=== PATIENT | female | born 1995 | race Caucasian/White ===

== ENCOUNTER 2017-02-11 23:09 | Inpatient (IN) | payer OTHER ==
[~2017-02-11] VITALS: Ht 165.1 cm; Wt 97.7 kg
--- NOTE | 2017-02-11 23:45 | ERA ---
ER Documentation Chief Complaint Date/Time DATE: 02/11/17 TIME: 23:44 Chief Complaint Abdominal pain HPI The patient is a 21-year-old female, presenting to the ER because of right upper quadrant abdominal pain intermittently for 1 day, 05/23, no aggravating or relieving factor. She was seen at [facility] ER and had an ultrasound that show cholelithiasis, no evidence of cholecystitis. She was treated with IV fluids, pain medication, Zosyn due to slightly elevated white blood. She was offered admission, however signed AMA to go to [facility]. She previously saw her general surgeon Dr. Pinedo, and was waiting for approval for surgery. She denies fever, chills, neck pain, chest pain, nausea, vomiting , dysuria, diarrhea. She does not smoke or drink Past medical history: Cholecystectomy, asthma Past surgical history: Gastric bypass ROS All systems reviewed and are negative except as per history of present illness. Allergies Allergies: Coded Allergies: codeine (Verified Allergy, Intermediate, rash, 02/12/17) Physical Exam Vitals Vital Signs Date Time Temp Pulse Resp B/P Pulse Ox O2 Delivery O2 Flow Rate FiO2 02/12/17 00:20 46 16 114/64 100 Room Air 02/11/17 23:17 97.7 84 18 126/85 100 Physical Exam Const: No acute distress. Head: Atraumatic. Eyes: Normal Conjunctiva. ENT: Normal External Ears, Nose and Mouth. Neck: Full range of motion. No meningismus. Resp: Clear to auscultation bilaterally. Cardio: Regular rate and rhythm. Abd: Soft, non distended, normal bowel sounds, moderate right upper quadrant tenderness, no right lower quadrant, rigidity, rebound or CVA tenderness Skin: No petechiae or rashes. Back: No midline or flank tenderness. Ext: No cyanosis, or edema. Neur: Awake and alert. No focal deficit Psych: Normal Mood and Affect. Results 24 hrs Laboratory Tests Test 02/12/17 00:19 Bedside Urine pH (LAB) 6.5 Bedside Urine Protein (LAB) Trace Bedside Urine Glucose (UA) Negative Bedside Urine Ketones (LAB) 1+ Bedside Urine Blood Negative Bedside Urine Nitrite (LAB) Negative Bedside Urine Leukocyte Esterase (L Negative Current Medications Medications (Trade) Dose Ordered Sig/Lidya Route PRN Reason Start Time Stop Time Status Last Admin Dose Admin Sodium Chloride (NS) 1,000 ml @ 1,000 mls/hr Q1H STAT IV 02/12/17 00:01 02/12/17 01:00 02/12/17 00:28 Morphine Sulfate (morphine) 4 mg ONCE STAT IV 02/12/17 00:01 02/12/17 00:10 DC 02/12/17 00:28 Ondansetron HCl (Zofran Inj) 4 mg ONCE STAT IV 02/12/17 00:01 02/12/17 00:10 DC 02/12/17 00:28 Ketorolac Tromethamine (Toradol) 30 mg ONCE STAT IV 02/12/17 00:01 02/12/17 00:10 DC 02/12/17 00:28 Procedures/MDM MEDICAL MAKING DECISION: Ultrasound and blood tests from [facility] were reviewed by me. The patient is 21-year-old female, presenting with acute symptomatic biliary colic. She was treated with 1 L normal saline for clinical dehydration, morphine 4 mg IV and Toradol 30 mg IV for pain and Zofran for liquid IV for nausea with good response, Zosyn IV for symptomatic biliary colic , concerning for acute cystitis The differential diagnoses considered include but are not limited to cholelithiasis, cholecystitis, cystitis, pancreatitis, hepatitis, gastritis, peptic ulcer disease, gastric ulcer, appendicitis, diverticulitis, cholangitis, choledocholithiasis, partial small bowel obstruction. Consultation: I discussed the patient with her general surgeon Dr. Pinedo at 12 0 5 AM, who recommended admitting the patient for surgical intervention Departure Diagnosis: Primary Impression: Biliary colic Condition: Good Comments I discussed the findings with the patient. I discussed the patient with the on- call hospitalist Dr. Art who was made aware of the lab, the treatment, the patient condition and my discussion with her general surgeon, pending labs. The patient is admitted to medical surgery bed at 12:30 AM The patient's blood pressure was elevated (>120/80) but appears stable without evidence of hypertension emergency or urgency. The patient was counseled about the risks of hypertension and urged to pursue outpatient monitoring and therapy within a week with their primary care physician. DARELL REDDY MD Feb 11, 2017 23:45
[2017-02-12] MEDS ORDERED: SOD CHLORIDE 0.9% 1,000 ML IV STA (00:01)
[2017-02-12] MEDS ORDERED: ONDANSETRON 4 MG INJ IV STA (00:01)
[2017-02-12] MEDS ORDERED: KETOROLAC 30 MG INJ IV STA (00:01)
[2017-02-12] MEDS ORDERED: morphine 4 MG/ML VIAL IV STA (00:01)
[2017-02-12 00:16] LABS: URINE BLOOD (Dip) POC Negative (NEGATIVE)
[2017-02-12 00:58] LABS: BASOPHILS % 0.2 % (0.0-2.0); EOSINOPHILS # 0.1 10^3/ul (0.0-0.5); HEMATOCRIT 37.5 % (37.0-47.0); HEMOGLOBIN 12.1 g/dl (12.0-16.0); LYMPHOCYTES # 2.1 10^3/ul (0.8-2.9); LYMPHOCYTES % 22.6 % (18.0-55.0); MEAN CORPUSCULAR HEMOGLOBIN 28.8 pg (29.0-33.0); MEAN CORPUSCULAR HGB CONC 32.3 g/dl (32.0-37.0); MEAN CORPUSCULAR VOLUME 89.3 fl (72.0-104.0); MEAN PLATELET VOLUME 10.7 fl (7.4-10.4); MONOCYTE # 0.5 10^3/ul (0.3-0.9); MONOCYTES % 5.2 % (0.0-13.0); NEUTROPHIL # 6.5 10^3/ul (1.6-7.5); NEUTROPHILS % 70.7 % (30.0-74.0); PLATELET COUNT 343 10^3/UL (140-415); RED CELL DISTRIBUTION WIDTH 12.7 % (11.5-14.5); WHITE BLOOD COUNT 9.2 10^3/ul (4.8-10.8)
[2017-02-12] MEDS: PIPER-TAZO 3.375 GM IV (PMX) 100 ML IVPB SCH ×5 (01:00→23:29)
[2017-02-12] MEDS ORDERED: NACL 0.9% 3 ML SYG IV SCH (01:00)
[2017-02-12 01:13] LABS: INR 0.9; PARTIAL THROMBOPLASTIN TIME 30.3 Sec (25.0-35.0); PROTIME 12.1 Sec (12.2-14.2); PT RATIO 0.9
--- NOTE | 2017-02-12 01:13 | HP ---
Date/Time of Note Date/Time of Note DATE: 02/12/17 TIME: 01:08 Assessment/Plan VTE Prophylaxis VTE Prophylaxis Intervention: SCD's Assessment/Plan Chief Complaint/Hosp Course This is a 21-year-old female being admitted to the [facility] floor #1 symptomatic cholelithiasis: Patient has a history of gallstones and was scheduled to have an appointment with Dr. Pinedo. However as patient's is currently symptomatic she will be admitted. She will be kept n.p.o. IV antibiotics for surgical prophylaxis, IV pain control. And consult was already placed by the ED physician to Dr. Pinedo for possible cholecystectomy. #2 leukocytosis: Based on blood work from the transferring facility white blood cell count was 13. At the current time there are no fevers and ultrasound was negative for cholecystitis. We will continue to monitor this and monitor for any fevers. This likely could be reactive or or a sign of possible early cholecystitis. #3 abnormal EKG: Patient does not complain of any chest pain or shortness of breath. EKG from the transferring facility showed sinus bradycardia at approximately 40-45 bpm. Will repeat an EKG in the a.m. if this is consistent we may need to discuss with cardiology before proceeding with surgery. #4 DVT and GI prophylaxis: SCDs, Protonix futher treatment strategy as per the clinical course Problems: HPI/ROS Admit Date/Time Admit Date/Time Hx of Present Illness Chief complaint: Right upper quadrant abdominal pain The patient is a 21-year-old female, presenting to the ER because of right upper quadrant abdominal pain intermittently for 1 day, 05/23, no aggravating or relieving factor. She was seen at [facility] ER and had an ultrasound that show cholelithiasis, no evidence of cholecystitis. She was treated with IV fluids, pain medication, Zosyn due to slightly elevated white blood. She was offered admission, however signed AMA to go to [facility]. She previously saw her general surgeon Dr. Pinedo, and was waiting for approval for surgery. She does report nausea and vomiting but denies fevers. allerigies: codeine meds: see cherelle SOUSA Const: As per HPI Eyes : No pain discharge or redness or change in visual acuity ENT: No pain, sore throat, congestion, congestion, dysphagia or discharge Respiratory: No shortness of breath, cough, sputum, wheezing, or pleuritic pain Cardiovascular: No chest pain, palpitation, PND, or edema GI : As per HPI Genitourinary: No dysuria, hematuria, flank pain , discharge or CVA tenderness Musculoskeletal: No joint pain, back pain, neck pain, restricted range of motion in neck or joints Skin: No rash, bruising or hives Neuro: No headache, dizziness, syncope, seizure, focal weakness Endocrine: No polyuria, polydipsia, temperature intolerance Psych: No hallucination, depression, anxiety or suicidal ideation PMH/Family/Social Past Medical History Gallstones Past Surgical History Past Surgical Hx: no surgical history Family History Significant Family History: diabetes Social History Alcohol Use: none Smoking Status: Never smoker Drug Use: none Exam/Review of Systems Vital Signs Vitals Vital Signs Date Time Temp Pulse Resp B/P Pulse Ox O2 Delivery O2 Flow Rate FiO2 02/12/17 00:20 46 16 114/64 100 Room Air 02/11/17 23:17 97.7 Exam Exam General: Patient is well-developed well-nourished The patient is alert oriented -3 lying comfortably in bed. HEENT: Atraumatic, normocephalic. The pupils are equal, round and reactive. Extraocular motor are intact Neck: Supple with full range of motion. No rigidity or meningismus Chest: Nontender Lungs: Clear to auscultation bilaterally no crackles rales or wheezing Heart: Normal S1-S2, Regular rhythm and rate. No murmur, S3, or S4 Abdomen: Soft, tenderness to palpation of the right upper quadrant, normal bowel sounds Extremities: Normal to inspection, no edema no cyanosis Neurologic: Normal mental status, speech normal, cranial nerves II through XII are intact, motor and sensory are intact, no focal weakness Additional Comments CBC: White blood cell count 13.9 hemoglobin 12 hematocrit 38 platelets 351. BMP: All within normal values Liver function tests: AST 20 ALT 21 alk phos 81 bilirubin 0.6 PT: 12.3 INR 1.0 PTT 31 Ultrasound of the gallbladder: Cholelithiasis, no signs of cholecystitis. EKG: Showed sinus bradycardia at approximately 45 bpm. Medications Medications Current Medications Sodium Chloride (NS) 1,000 ml @ 100 mls/hr Q10H IV ; Start 02/12/17 at 00:38 Ondansetron HCl (Zofran Inj) 4 mg Q6H PRN IV NAUSEA AND/OR VOMITING; Start 02/12 at 01:00 Hydromorphone HCl (Dilaudid) 0.5 mg Q4H PRN IV SEVERE PAIN LEVEL 7-10; Start at 01:00 Pantoprazole 40 mg 40 mg DAILY@06 IV ; Start 02/12/17 at 06:00 Piperacillin Sod/ Tazobactam Sod (Zosyn 3.375gm/ 100 ml (Pmx)) 100 ml @ 200 mls /hr Q6 IVPB Last administered on 02/12/17 01:00; Admin Dose 200 MLS/HR; Start 02/12/17 at 01:00 ARTURO DUTTON Feb 12, 2017 01:13
[2017-02-12 01:18] LABS: ALBUMIN 4.5 g/dl (3.3-4.9); ALBUMIN/GLOBULIN RATIO 1.45; BILIRUBIN,INDIRECT 0.4 mg/dl (0-1.1); BILIRUBIN,TOTAL 0.4 mg/dl (0.2-1.3); CALCIUM 9.3 mg/dl (8.4-10.2); CREATININE 0.71 mg/dl (0.44-1.00); POTASSIUM 4.2 mmol/L (3.5-5.1); TOTAL PROTEIN 7.6 g/dl (6.1-8.1)
--- NOTE | 2017-02-12 01:31 | RADRPT ---
PROCEDURE: XR Chest. CLINICAL INDICATION: Preoperative chest radiograph TECHNIQUE: Single frontal view of the chest. COMPARISON: None. FINDINGS: The cardiomediastinal silhouette is within normal limits. The lungs are clear. No signs of pleural f luid or pneumothorax are seen. The osseous structures and soft tissues are unremarkable. IMPRESSION: No evidence for active cardiopulmonary disease. RPTAT: [facility] Physician Charlie Date Time Electronically viewed and signed by Physician Charlie on 02/12/2017 01:31 RS/
[2017-02-12 02:50] VITALS: BP 120/59; PULSE 49; RESP 16; Ht 165.1 cm; Wt 97.7 kg
[2017-02-12] MEDS: SOD CHLORIDE 0.9% 1,000 ML IV SCH ×3 (03:14→14:07)
[2017-02-12] MEDS ORDERED: MONT10TA21 PO (04:09)
[2017-02-12] MEDS ORDERED: LORA5TAB4 PO (04:09)
[2017-02-12] MEDS: PANTOPRAZOLE 40 MG INJ IV SCH (05:42)
[2017-02-12 08:10] VITALS: BP 100/54; RESP 16
--- NOTE | 2017-02-12 13:26 | PN ---
Date/Time of Note Date/Time of Note DATE: 02/12/17 TIME: 13:26 Assessment/Plan VTE Prophylaxis VTE Prophylaxis Intervention: SCD's Lines/Catheters IV Catheter Type (from Nrsg): Peripheral IV Assessment/Plan Assessment/Plan 21 yo F with symptomatic cholecystitis plan or today for lap juan pablo dispo as per gen surg Subjective 24 Hr Interval Summary Free Text/Dictation Pain control adequate. Exam/Review of Systems Vital Signs Vitals Vital Signs Date Time Temp Pulse Resp B/P Pulse Ox O2 Delivery O2 Flow Rate FiO2 02/12/17 02:50 98.1 49 16 120/59 98 Room Air Intake and Output 02/11/17 02/11/17 02/12/17 15:00 23:00 07:00 Intake Total 300 ml Balance 300 ml Exam nad, sitting up in bed no mrg lungs clear abd soft no le edema Results Result Diagram: 02/12/17 0010 02/12/17 0010 Results 24 hrs Laboratory Tests Test 02/12/17 00:10 02/12/17 00:19 White Blood Count 9.2 Red Blood Count 4.20 Hemoglobin 12.1 Hematocrit 37.5 Mean Corpuscular Volume 89.3 Mean Corpuscular Hemoglobin 28.8 L Mean Corpuscular Hemoglobin Concent 32.3 Red Cell Distribution Width 12.7 Platelet Count 343 Mean Platelet Volume 10.7 H Neutrophils % 70.7 Lymphocytes % 22.6 Monocytes % 5.2 Eosinophils % 1.0 Basophils % 0.2 Nucleated Red Blood Cells % 0.0 Neutrophils # 6.5 Lymphocytes # 2.1 Monocytes # 0.5 Eosinophils # 0.1 Basophils # 0.0 Nucleated Red Blood Cells # 0.0 Prothrombin Time 12.1 L Prothrombin Time Ratio 0.9 INR International Normalized Ratio 0.90 Activated Partial Thromboplast Time 30.3 Sodium Level 142 Potassium Level 4.2 Chloride Level 103 Carbon Dioxide Level 25 Anion Gap 18 H Blood Urea Nitrogen 7 Creatinine 0.71 Glucose Level 83 Calcium Level 9.3 Total Bilirubin 0.4 Direct Bilirubin 0.00 Indirect Bilirubin 0.4 Aspartate Amino Transf (AST/SGOT) 25 Alanine Aminotransferase (ALT/SGPT) 36 Alkaline Phosphatase 87 Total Protein 7.6 Albumin 4.5 Globulin 3.10 Albumin/Globulin Ratio 1.45 Lipase 36 Bedside Urine pH (LAB) 6.5 Bedside Urine Protein (LAB) Trace H Bedside Urine Glucose (UA) Negative Bedside Urine Ketones (LAB) 1+ H Bedside Urine Blood Negative Bedside Urine Nitrite (LAB) Negative Bedside Urine Leukocyte Esterase (L Negative Medications Medications Current Medications Sodium Chloride (NS) 1,000 ml @ 100 mls/hr Q10H IV Last administered on 03:14; Admin Dose 100 MLS/HR; Start 02/12/17 at 00:38 Ondansetron HCl (Zofran Inj) 4 mg Q6H PRN IV NAUSEA AND/OR VOMITING; Start 02/12 at 01:00 Hydromorphone HCl (Dilaudid) 0.5 mg Q4H PRN IV SEVERE PAIN LEVEL 7-10; Start at 01:00 Pantoprazole 40 mg 40 mg DAILY@06 IV Last administered on 02/12/17 05:42; Admin Dose 40 MG; Start 02/12/17 at 06:00 Piperacillin Sod/ Tazobactam Sod (Zosyn 3.375gm/ 100 ml (Pmx)) 100 ml @ 200 mls /hr Q6 IVPB Last administered on 02/12/17 12:17; Admin Dose 200 MLS/HR; Start 02/12/17 at 01:00 HUBER GOODWIN MD Feb 12, 2017 13:26
[2017-02-12 20:13] VITALS: BP 100/59; RESP 19
[2017-02-13] VITALS (23 sets, daily range): BP systolic 102–125; BP diastolic 50–69; PULSE 50–84; RESP 16–21
[2017-02-13] MEDS: SOD CHLORIDE 0.9% 1,000 ML IV SCH ×3 (01:27→18:05)
[2017-02-13] MEDS: PIPER-TAZO 3.375 GM IV (PMX) 100 ML IVPB SCH ×3 (05:39→18:00)
[2017-02-13] MEDS: PANTOPRAZOLE 40 MG INJ IV SCH (05:39)
--- NOTE | 2017-02-13 10:24 | PN ---
Date/Time of Note Date/Time of Note DATE: 02/13/17 TIME: 10:23 Assessment/Plan VTE Prophylaxis VTE Prophylaxis Intervention: SCD's Lines/Catheters IV Catheter Type (from Nrsg): Peripheral IV Assessment/Plan Assessment/Plan 21 yo F with symptomatic cholecystitis plan or today for lap juan pablo??? dispo as per gen surg Subjective 24 Hr Interval Summary Free Text/Dictation Still waiting on cholecystectomy Exam/Review of Systems Vital Signs Vitals Vital Signs Date Time Temp Pulse Resp B/P Pulse Ox O2 Delivery O2 Flow Rate FiO2 02/13/17 08:26 98.0 18 113/69 97 02/12/17 20:13 55 02/12/17 02:50 Room Air Intake and Output 02/12/17 02/12/17 02/13/17 15:00 23:00 07:00 Intake Total 800 ml 400 ml 1720 ml Balance 800 ml 400 ml 1720 ml Exam nad, laying on side respirations nonlabored no gross abd distension no rashes no le edema Results Result Diagram: 02/12/17 0010 02/12/17 0010 Medications Medications Current Medications Sodium Chloride (NS) 1,000 ml @ 100 mls/hr Q10H IV Last administered on 01:27; Admin Dose 100 MLS/HR; Start 02/12/17 at 00:38 Ondansetron HCl (Zofran Inj) 4 mg Q6H PRN IV NAUSEA AND/OR VOMITING; Start 02/12 at 01:00 Hydromorphone HCl (Dilaudid) 0.5 mg Q4H PRN IV SEVERE PAIN LEVEL 7-10; Start at 01:00 Pantoprazole 40 mg 40 mg DAILY@06 IV Last administered on 02/13/17 05:39; Admin Dose 40 MG; Start 02/12/17 at 06:00 Piperacillin Sod/ Tazobactam Sod (Zosyn 3.375gm/ 100 ml (Pmx)) 100 ml @ 200 mls /hr Q6 IVPB Last administered on 02/13/17 05:39; Admin Dose 200 MLS/HR; Start 02/12/17 at 01:00 HUBER GOODWIN MD Feb 13, 2017 10:23
[2017-02-13] MEDS ORDERED: BUPIVACAINE 0.25% (MPF) 30 ML INJ ONE (16:48)
[2017-02-13] MEDS ORDERED: MIDAZOLAM 1 MG/ML 2 ML INJ ONE (17:18)
[2017-02-13] MEDS ORDERED: MEPERIDINE 25 MG INJ IV PRN (18:00)
[2017-02-13] MEDS ORDERED: DIPHENHYDRAMINE 50 MG INJ IV PRN (18:00)
[2017-02-13] MEDS ORDERED: METOCLOPRAMIDE 10 MG INJ IV PRN (18:00)
[2017-02-13] MEDS ORDERED: ONDANSETRON 4 MG INJ IV PRN (18:00)
[2017-02-13] MEDS ORDERED: ONDANSETRON 4 MG INJ ONE (18:02)
[2017-02-13] MEDS ORDERED: ROCURONIUM 50 MG INJ ONE (18:06)
[2017-02-13] MEDS ORDERED: NEOSTIGMINE 3 MG/3 ML SYRINGE ONE (18:06)
[2017-02-13] MEDS ORDERED: LIDOCAINE 2% (SDV) 5 ML INJ ONE (18:06)
[2017-02-13] MEDS ORDERED: GLYCOPYRROLATE 0.4 MG INJ ONE (18:06)
[2017-02-13] MEDS ORDERED: CEFAZOLIN 1 GM INJ ONE (18:06)
[2017-02-13] MEDS ORDERED: PROPOFOL 20 ML ONE (18:06)
--- NOTE | 2017-02-13 18:11 | OPR ---
Date/Time of Note Date/Time of Note DATE: 02/13/17 TIME: 18:07 Operative Report Procedure Date: Feb 13, 2017 Preoperative Diagnosis symptomatic gallstones Postoperative Diagnosis same Operation Performed lap juan pablo therapeutic injection of subcutaneous marcaine cpt code 51043 Surgeon: Kae CRARANZA Specimens gallbladder Procedure Description Patient is taken to the OR and prepped and draped in usual sterile fashion. Surgical time was performed IV antibiotics are given. Infraumbilical incision is made with a 15 blade. Dissection cautery was carried down to the fascia. Fascia is divided and 0 Vicryl U stitch was placed into the fascia put. Balloon Rubio trocar was introduced and pneumoperitoneum is established. Midepigastric 12 mm optical trocar was placed under direct visualization. Right upper quadrant right upper flank 5 mm optical trocar was placed under direct visualization. Upon initial inspection there are some adhesions to the gallbladder which were taken down bluntly. The cystic duct is identified a critical view was established the cystic duct was divided using a 35 mm echelon vascular stapler. Additional clips were placed for reinforcement. 3 clips proximally clipped distally was placed on the cystic artery. The gallbladder was taken of the gallbladder bed there is good hemostasis gallbladder is achieved using an Endo Catch bag. Ports removed under direct visualization 0 Vicryl U stitch was tied down. Skin is closed and skin alvaro. Local anesthesia is injected into all surgical sites. Dry dressings were placed. Kae CARRANZA Feb 13, 2017 18:10
[2017-02-13] MEDS ORDERED: HYDROCODONE/APAP (5/325) TAB PO PRN (18:30)
[2017-02-13] MEDS: FENTAnyl 50 MCG/ML VIAL IV PRN ×3 (18:43→19:06)
[2017-02-13] MEDS ORDERED: HYDROmorphONE 1 MG/ML SYG IV STA (19:25)
[2017-02-13] MEDS: HYDROmorphONE 1 MG/ML SYG IV PRN (20:32)
[2017-02-13] MEDS: ONDANSETRON 4 MG INJ IV PRN (20:47)
--- NOTE | 2017-02-13 20:58 | RADRPT ---
Vent Rate: 52 bpm RR Interval: 0 msec [place] Interval: 174 msec QRS Duration: 92 msec QT Interval: 450 msec QTC Interval: 418 msec P-R-T [place]: 58 - 54 - 41 degrees Sinus bradycardia with marked sinus arrhythmia Otherwise normal ECG Electronically Signed By: Carlos Mckeon [id number]
[2017-02-14] MEDS: PIPER-TAZO 3.375 GM IV (PMX) 100 ML IVPB SCH ×4 (00:06→17:42)
[2017-02-14] MEDS: HYDROmorphONE 1 MG/ML SYG IV PRN ×6 (00:40→21:01)
[2017-02-14] MEDS: SOD CHLORIDE 0.9% 1,000 ML IV SCH ×5 (04:05→12:34)
[2017-02-14] MEDS: ONDANSETRON 4 MG INJ IV PRN (04:54)
[2017-02-14 04:58] LABS: ADD SCAN DIFF NO
[2017-02-14 05:00] LABS: BASOPHILS % 0.1 % (0.0-2.0); EOSINOPHILS % 0.1 % (0.0-7.0); HEMATOCRIT 33.8 % (37.0-47.0); HEMOGLOBIN 11.2 g/dl (12.0-16.0); LYMPHOCYTES % 7.8 % (18.0-55.0); MEAN CORPUSCULAR HEMOGLOBIN 28.4 pg (29.0-33.0); MEAN CORPUSCULAR HGB CONC 33.1 g/dl (32.0-37.0); MEAN CORPUSCULAR VOLUME 85.8 fl (72.0-104.0); MEAN PLATELET VOLUME 10.9 fl (7.4-10.4); MONOCYTE # 0.4 10^3/ul (0.3-0.9); MONOCYTES % 3.1 % (0.0-13.0); NEUTROPHILS % 88.6 % (30.0-74.0); PLATELET COUNT 266 10^3/UL (140-415); RED BLOOD COUNT 3.94 10^6/ul (4.20-5.40); WHITE BLOOD COUNT 12.4 10^3/ul (4.8-10.8)
[2017-02-14 05:27] LABS: ALBUMIN 3.7 g/dl (3.3-4.9); ALBUMIN/GLOBULIN RATIO 1.54; BILIRUBIN,INDIRECT 0.3 mg/dl (0-1.1); BILIRUBIN,TOTAL 0.3 mg/dl (0.2-1.3); CALCIUM 8.9 mg/dl (8.4-10.2); CREATININE 0.64 mg/dl (0.44-1.00); POTASSIUM 4.2 mmol/L (3.5-5.1); TOTAL PROTEIN 6.1 g/dl (6.1-8.1)
[2017-02-14] MEDS: PANTOPRAZOLE 40 MG INJ IV SCH (05:42)
[2017-02-14 07:52] VITALS: BP 114/67; RESP 20
--- NOTE | 2017-02-14 09:06 | PN ---
Date/Time of Note Date/Time of Note DATE: 02/14/17 TIME: 09:02 Assessment/Plan VTE Prophylaxis VTE Prophylaxis Intervention: SCD's Lines/Catheters IV Catheter Type (from Nrs): Peripheral IV Assessment/Plan Chief Complaint/Hosp Course 1. Symptomatic cholelithiasis. Status post laparoscopic cholecystectomy on 02/13. Continue pain control. Continue incentive spirometry. Encourage frequent ambulation. Diet as per surgery. 2. Hyponatremia. Etiology unclear. Continue IV normal saline. 3. Sinus bradycardia. The patient is asymptomatic. 4. Obesity. BMI of 35.8 kg/m. Weight reduction will be advised. Will obtain a fasting lipid panel and hemoglobin A1C. 5. Fluids, electrolytes, and nutrition. Continue IV normal saline. Diet as tolerated. 6. DVT prophylaxis. Bilateral sequential compression devices. 7. Gastrointestinal prophylaxis. Proton pump inhibitors. 8. Plan. Continue IV normal saline. Encourage frequent ambulation. Encourage frequent use of incentive spirometry. Continue pain control. Case discussed with Dr. Logan. Problems: Subjective 24 Hr Interval Summary Free Text/Dictation Complains of abdominal pain. Exam/Review of Systems Vital Signs Vitals Vital Signs Date Time Temp Pulse Resp B/P Pulse Ox O2 Delivery O2 Flow Rate FiO2 02/14/17 07:52 98.4 57 20 114/67 100 02/13/17 19:38 Room Air 02/13/17 18:28 8.0 Intake and Output 02/13/17 02/13/17 02/14/17 15:00 23:00 07:00 Intake Total 700 ml 900 ml 1280 ml Output Total 15 ml Balance 700 ml 885 ml 1280 ml Exam General: Obese 21 year-old female lying in bed in no apparent distress. HEENT: Normocephalic, atraumatic. Eyes: Anicteric sclerae, conjunctivae clear. ENT: Nasal septum midline, oral mucosa moist. Neck supple, no JVD noticed. Respiratory: Bilaterally clear breath sounds. No use of accessory muscles of respiration. No adventitious breath sounds. Cardiovascular: S1, S2 heard. No murmurs or gallops. Bradycardia. Abdomen: Soft and nondistended. Bowel sounds hypoactive in all 4 quadrants. Tapes over laparoscopic incision sites with nico-incisional tenderness. Genitourinary: Deferred. Extremities: No cyanosis, no clubbing, no edema. Peripheral pulses palpable. Neurologic: Cranial nerves II through XII grossly intact. The patient is awake, alert, and oriented. Skin: Normal skin turgor. No skin rashes. Results Result Diagram: 02/14/1743402/14/17 043 Results 24 hrs Laboratory Tests Test 02/14/17 04:35 02/14/17 06:40 White Blood Count 12.4 #H Red Blood Count 3.94 L Hemoglobin 11.2 L Hematocrit 33.8 L Mean Corpuscular Volume 85.8 Mean Corpuscular Hemoglobin 28.4 L Mean Corpuscular Hemoglobin Concent 33.1 Red Cell Distribution Width 12.0 Platelet Count 266 # Mean Platelet Volume 10.9 H Neutrophils % 88.6 H Lymphocytes % 7.8 L Monocytes % 3.1 Eosinophils % 0.1 Basophils % 0.1 Nucleated Red Blood Cells % 0.0 Neutrophils # 11.0 H Lymphocytes # 1.0 Monocytes # 0.4 Eosinophils # 0.0 Basophils # 0.0 Nucleated Red Blood Cells # 0.0 Sodium Level 129 L Potassium Level 4.2 Chloride Level 102 Carbon Dioxide Level 22 Anion Gap 9 Blood Urea Nitrogen 4 L Creatinine 0.64 Glucose Level 103 Calcium Level 8.9 Total Bilirubin 0.3 Direct Bilirubin 0.00 Indirect Bilirubin 0.3 Aspartate Amino Transf (AST/SGOT) 34 Alanine Aminotransferase (ALT/SGPT) 39 Alkaline Phosphatase 56 Total Protein 6.1 Albumin 3.7 Globulin 2.40 Albumin/Globulin Ratio 1.54 Lab Scanned Report LAB Medications Medications Current Medications Sodium Chloride (NS) 1,000 ml @ 100 mls/hr Q10H IV Last administered on 04:13; Admin Dose 100 MLS/HR; Start 02/12/17 at 00:38 Ondansetron HCl (Zofran Inj) 4 mg Q6H PRN IV NAUSEA AND/OR VOMITING Last administered on 02/14/17 04:54; Admin Dose 4 MG; Start 02/12/17 at 01:00 Hydromorphone HCl (Dilaudid) 0.5 mg Q4H PRN IV SEVERE PAIN LEVEL 7-10 Last administered on 02/14/17 08:50; Admin Dose 0.5 MG; Start 02/12/17 at 01:00 Pantoprazole 40 mg 40 mg DAILY@06 IV Last administered on 02/14/17 05:42; Admin Dose 40 MG; Start 02/12/17 at 06:00 Piperacillin Sod/ Tazobactam Sod (Zosyn 3.375gm/ 100 ml (Pmx)) 100 ml @ 200 mls /hr Q6 IVPB Last administered on 02/14/17t 05:43; Admin Dose 200 MLS/HR; Start 02/12/17 at 01:00 Acetaminophen/ Hydrocodone Bitart ([place] (5/325)) 1 tab Q6H PRN PO PAIN LEVEL 6 -10; Start 02/13/17 at 18:30 Morphine Sulfate 2 mg 2 mg Q2H PRN IV BREAKTHROUGH PAIN; Start 02/13/17 at 18:30 Sodium Chloride (NS) 1,000 ml @ 100 mls/hr Q10H IV ; Start 02/13/17 at 18:05 AZAR KULKARNI NP Feb 14, 2017 09:06
[2017-02-14 11:50] LABS: CHOL/HDL RATIO 2.6 RATIO
[2017-02-14 12:42] LABS: THYROID STIMULATING HORMONE 0.383 MIU/L (0.465-4.680)
[2017-02-14 20:03] VITALS: BP 119/63; RESP 18
[2017-02-15] MEDS: SOD CHLORIDE 0.9% 1,000 ML IV SCH ×2 (00:05→10:05)
[2017-02-15] MEDS: PIPER-TAZO 3.375 GM IV (PMX) 100 ML IVPB SCH ×3 (00:14→11:58)
[2017-02-15] MEDS: morphine 2 MG INJ IV PRN ×4 (00:16→10:18)
[2017-02-15 05:07] LABS: ADD SCAN DIFF NO
[2017-02-15 05:18] LABS: BASOPHILS % 0.3 % (0.0-2.0); EOSINOPHILS # 0.1 10^3/ul (0.0-0.5); EOSINOPHILS % 1.9 % (0.0-7.0); HEMATOCRIT 32.1 % (37.0-47.0); LYMPHOCYTES # 2.1 10^3/ul (0.8-2.9); LYMPHOCYTES % 27.4 % (18.0-55.0); MEAN CORPUSCULAR HEMOGLOBIN 29.8 pg (29.0-33.0); MEAN CORPUSCULAR HGB CONC 34.3 g/dl (32.0-37.0); MEAN PLATELET VOLUME 10.9 fl (7.4-10.4); MONOCYTE # 0.6 10^3/ul (0.3-0.9); MONOCYTES % 7.7 % (0.0-13.0); NEUTROPHIL # 4.7 10^3/ul (1.6-7.5); NEUTROPHILS % 62.3 % (30.0-74.0); PLATELET COUNT 235 10^3/UL (140-415); RED BLOOD COUNT 3.69 10^6/ul (4.20-5.40); RED CELL DISTRIBUTION WIDTH 12.5 % (11.5-14.5); WHITE BLOOD COUNT 7.5 10^3/ul (4.8-10.8)
[2017-02-15] MEDS: PANTOPRAZOLE 40 MG INJ IV SCH (05:21)
[2017-02-15 05:49] LABS: ALBUMIN 3.4 g/dl (3.3-4.9); ALBUMIN/GLOBULIN RATIO 1.54; BILIRUBIN,INDIRECT 0.2 mg/dl (0-1.1); BILIRUBIN,TOTAL 0.2 mg/dl (0.2-1.3); CALCIUM 8.9 mg/dl (8.4-10.2); CREATININE 0.66 mg/dl (0.44-1.00); POTASSIUM 3.9 mmol/L (3.5-5.1); TOTAL PROTEIN 5.6 g/dl (6.1-8.1)
[2017-02-15 05:50] LABS: MAGNESIUM 1.6 mg/dl (1.7-2.5); PHOSPHORUS 3.8 mg/dl (2.5-4.9)
[2017-02-15 08:13] VITALS: BP 118/79; RESP 18
--- NOTE | 2017-02-15 10:58 | PDOCDIS ---
Discharge Instructions DIAGNOSIS Discharge Diagnosis Symptomatic cholelithiasis. Status post laparoscopic cholecystectomy. CONDITION Patient Condition: Stable HOME CARE INSTRUCTIONS: Diet Instructions: Low Fat /Cholesterol FOLLOW UP/APPOINTMENTS Follow-up Plan Chris Carvajal, Specialty General Surgery Office Address [address] [phone] Office OTHER ORDERS: Other Orders: 1. Regular, preferably low-cholesterol diet as tolerated. 2. Keep incisions clean and dry. May shower. Avoid tub baths and swimming for 2 weeks. Use mild soap and pat dry the incisions. 3. Take medications as needed for pain. 4. Call the surgeon or go to the nearest ER if you have severe abdominal pain despite pain medications. 5. Call the surgeon or go to the nearest ER if you notice any bleeding or secretions coming out of the incision sites. Also call the surgeon if you notice any blood in stool, if you have persistent fevers, or any other unusual signs or symptoms. 6. Follow-up with the surgeon [Dr. Carvajal] in 7 days for incision check. 7. Avoid heavy lifting [more than 25 pounds] for 8 weeks. AZAR KULKARNI NP Feb 15, 2017 10:58
[2017-02-15] MEDS ORDERED: HYDR-3498 PO (11:02)
[2017-02-15] MEDS ORDERED: CEPH-443 PO (11:03)
[2017-02-15] MEDS ORDERED: DOCU-144 PO (11:03)
--- NOTE | 2017-02-15 11:14 | DS ---
Date/Time of Note Date/Time of Note DATE: 02/15/17 TIME: 11:13 Discharge Summary Admission/Discharge Info Admit Date/Time Feb 12, 2017 at 00:41 Discharge Date/Time Discharge Diagnosis 1. Symptomatic cholelithiasis. Status post laparoscopic cholecystectomy. 2. Obesity. 3. Sinus bradycardia. Patient Condition: Stable Consults 1. Chris Carvajal MD, General Surgery. Procedures CXR IMPRESSION: No evidence for active cardiopulmonary disease. Laparoscopic cholecystectomy on 02/13/2017 Hx of Present Illness Chief complaint: Right upper quadrant abdominal pain The patient is a 21-year-old female, presenting to the ER because of right upper quadrant abdominal pain intermittently for 1 day, 05/23, no aggravating or relieving factor. She was seen at [facility] ER and had an ultrasound that show cholelithiasis, no evidence of cholecystitis. She was treated with IV fluids, pain medication, Zosyn due to slightly elevated white blood. She was offered admission, however signed AMA to go to [facility]. She previously saw her general surgeon Dr. Pinedo, and was waiting for approval for surgery. She does report nausea and vomiting but denies fevers. allerigies: codeine meds: see [facility] Hospital Course The patient was admitted to inpatient setting. She was kept n.p.o. She was provided with adequate pain control. The patient was provided with IV fluids. General surgery consult was called. The patient was taken to the OR on 2016 and the patient underwent a laparoscopic cholecystectomy with no immediate postoperative complications. The patient was started on a clear liquid diet and the patient's diet was advanced as tolerated without any significant gastrointestinal symptoms. Patient was encouraged to use incentive spirometry and she was encouraged on frequent ambulation. The patient was provided with adequate pain control. Postoperatively, the patient had some hyponatremia that was corrected with IV normal saline. The patient had significant bradycardia prior to surgery. Patient's 12-lead EKG showed sinus bradycardia. The patient was asymptomatic. The patient works out every day this could be the reason for her underlying sinus bradycardia. The patient had no evidence of any hypothyroidism. The patient has obesity with a BMI of 35.8 kg/m. She is status post gastric sleeve in the past. Patient's fasting lipid panel was within normal limits and the patient's hemoglobin A1c did not show any evidence of any diabetes. Patient had a stable hospital course. The patient is stable to be discharged home. The patient was cleared by the hr business partner consultant to be discharged home. Discharge Instructions 1. Regular, preferably low-cholesterol diet as tolerated. 2. Keep incisions clean and dry. May shower. Avoid tub baths and swimming for 2 weeks. Use mild soap and pat dry the incisions. 3. Take medications as needed for pain. 4. Call the surgeon or go to the nearest ER if you have severe abdominal pain despite pain medications. 5. Call the surgeon or go to the nearest ER if you notice any bleeding or secretions coming out of the incision sites. Also call the surgeon if you notice any blood in stool, if you have persistent fevers, or any other unusual signs or symptoms. 6. Follow-up with the surgeon [Dr. Carvajal] in 7 days for incision check. 7. Avoid heavy lifting [more than 25 pounds] for 8 weeks. Patient verbalized understanding of her discharge instructions. Case discussed with Dr. Logan. Home Meds Active Scripts Cephalexin* (Keflex*) 500 Mg Capsule, 500 MG PO Q8 for 7 Days, #21 CAP Prov:AZAR KULKARNI FILTER [employer] PU[employer]ER 02/15/17 Docusate Sodium* (Colace*) 100 Mg Capsule, 100 MG PO BID, #20 CAP Prov:AZAR KULKANRI NP 02/15/17 Hydrocodone Bit-Acetaminophen (Hydrocodone Bit-APAP) 5-325MG Tablet, 1 TAB PO Q6H Y for PAIN LEVEL 6-10, #20 TAB Prov:AZAR KULKARNI [employer]ER 02/15/17 Discontinued Reported Medications Montelukast Sodium* (Singulair*) 10 Mg Tablet, PO QHS, #30 TAB 02/12/17 Loratadine* (Claritin*) 5 Mg Tab.rapdis, PO DAILY, #30 TAB 02/12/17 Follow-up Plan Patient to follow-up with Dr Carvajal in 7 days. Primary Care Provider [facility], [place] Time spent on discharge: > 30 minutes Pending Labs Laboratory Tests Test 02/15/17 04:40 White Blood Count 7.510^3/ul (4.8-10.8) Red Blood Count 3.6910^6/ul (4.20-5.40) Hemoglobin 11.0g/dl (12.0-16.0) Hematocrit 32.1% (37.0-47.0) Mean Corpuscular Volume 87.0fl (72.0-104.0) Mean Corpuscular Hemoglobin 29.8pg (29.0-33.0) Mean Corpuscular Hemoglobin Concent 34.3g/dl (32.0-37.0) Red Cell Distribution Width 12.5% (11.5-14.5) Platelet Count 30511^3/UL (140-415) Mean Platelet Volume 10.9fl (7.4-10.4) Neutrophils % 62.3% (30.0-74.0) Lymphocytes % 27.4% (18.0-55.0) Monocytes % 7.7% (0.0-13.0) Eosinophils % 1.9% (0.0-7.0) Basophils % 0.3% (0.0-2.0) Nucleated Red Blood Cells % 0.0/100WBC (0.0-0.0) Neutrophils # 4.710^3/ul (1.6-7.5) Lymphocytes # 2.110^3/ul (0.8-2.9) Monocytes # 0.610^3/ul (0.3-0.9) Eosinophils # 0.110^3/ul (0.0-0.5) Basophils # 0.010^3/ul (0.0-0.1) Nucleated Red Blood Cells # 0.010^3/ul (0.0-0.0) Sodium Level 139mmol/L (135-144) Potassium Level 3.9mmol/L (3.5-5.1) Chloride Level 100mmol/L (97-110) Carbon Dioxide Level 27mmol/L (21-31) Anion Gap 16 (8-16) Blood Urea Nitrogen 4mg/dl (7-20) Creatinine 0.66mg/dl (0.44-1.00) Glucose Level 85mg/dl (70-220) Calcium Level 8.9mg/dl (8.4-10.2) Phosphorus Level 3.8mg/dl (2.5-4.9) Magnesium Level 1.6mg/dl (1.7-2.5) Total Bilirubin 0.2mg/dl (0.2-1.3) Direct Bilirubin 0.00mg/dl (0.00-0.20) Indirect Bilirubin 0.2mg/dl (0-1.1) Aspartate Amino Transf (AST/SGOT) 25IU/L (15-46) Alanine Aminotransferase (ALT/SGPT) 41IU/L (13-69) Alkaline Phosphatase 48IU/L (42-121) Total Protein 5.6g/dl (6.1-8.1) Albumin 3.4g/dl (3.3-4.9) Globulin 2.20g/dl (1.3-3.2) Albumin/Globulin Ratio 1.54 AZAR KULKARNI NP Feb 15, 2017 11:14
[2017-02-15] MEDS ORDERED: MAGNESIUM CHLORIDE (SR) 64 MG TAB PO ONE (11:30)
--- NOTE | 2017-02-15 12:25 | PN ---
Date/Time of Note Date/Time of Note DATE: 02/15/17 TIME: 12:24 Assessment/Plan VTE Prophylaxis VTE Prophylaxis Intervention: SCD's Lines/Catheters IV Catheter Type (from Nrs): Peripheral IV Assessment/Plan Chief Complaint/Hosp Course s/p lap juan pablo doing well dc home f/u in 2 weeks Problems: Subjective 24 Hr Interval Summary Free Text/Dictation patient doing well no issues, tolerating diet Exam/Review of Systems Vital Signs Vitals Vital Signs Date Time Temp Pulse Resp B/P Pulse Ox O2 Delivery O2 Flow Rate FiO2 02/15/17 08:13 98.1 58 18 118/79 98 02/13/17 19:38 Room Air 02/13/17 18:28 8.0 Intake and Output 02/14/17 02/14/17 02/15/17 14:59 22:59 06:59 Intake Total 100 ml 2690 ml 590 ml Balance 100 ml 2690 ml 590 ml Exam incision c/d/i Results Result Diagram: 02/15/17 0440 02/15/17 0440 Results 24 hrs Laboratory Tests Test 02/15/17 04:40 White Blood Count 7.5 # Red Blood Count 3.69 L Hemoglobin 11.0 L Hematocrit 32.1 L Mean Corpuscular Volume 87.0 Mean Corpuscular Hemoglobin 29.8 Mean Corpuscular Hemoglobin Concent 34.3 Red Cell Distribution Width 12.5 Platelet Count 235 Mean Platelet Volume 10.9 H Neutrophils % 62.3 Lymphocytes % 27.4 Monocytes % 7.7 Eosinophils % 1.9 Basophils % 0.3 Nucleated Red Blood Cells % 0.0 Neutrophils # 4.7 Lymphocytes # 2.1 Monocytes # 0.6 Eosinophils # 0.1 Basophils # 0.0 Nucleated Red Blood Cells # 0.0 Sodium Level 139 Potassium Level 3.9 Chloride Level 100 Carbon Dioxide Level 27 Anion Gap 16 # Blood Urea Nitrogen 4 L Creatinine 0.66 Glucose Level 85 Calcium Level 8.9 Phosphorus Level 3.8 Magnesium Level 1.6 L Total Bilirubin 0.2 Direct Bilirubin 0.00 Indirect Bilirubin 0.2 Aspartate Amino Transf (AST/SGOT) 25 Alanine Aminotransferase (ALT/SGPT) 41 Alkaline Phosphatase 48 Total Protein 5.6 L Albumin 3.4 Globulin 2.20 Albumin/Globulin Ratio 1.54 Medications Medications Current Medications Ondansetron HCl (Zofran Inj) 4 mg Q6H PRN IV NAUSEA AND/OR VOMITING Last administered on 02/14/17 04:54; Admin Dose 4 MG; Start 02/12/17 at 01:00 Hydromorphone HCl (Dilaudid) 0.5 mg Q4H PRN IV SEVERE PAIN LEVEL 7-10 Last administered on 02/14/17 21:01; Admin Dose 0.5 MG; Start 02/12/17 at 01:00 Pantoprazole 40 mg 40 mg DAILY@06 IV Last administered on 02/15/17 05:21; Admin Dose 40 MG; Start 02/12/17 at 06:00 Piperacillin Sod/ Tazobactam Sod (Zosyn 3.375gm/ 100 ml (Pmx)) 100 ml @ 200 mls /hr Q6 IVPB Last administered on 02/15/17 05:21; Admin Dose 200 MLS/HR; Start 02/12/17 at 01:00 Acetaminophen/ Hydrocodone Bitart ([place] (5/325)) 1 tab Q6H PRN PO PAIN LEVEL 6 -10; Start 02/13/17 at 18:30 Morphine Sulfate 2 mg 2 mg Q2H PRN IV BREAKTHROUGH PAIN Last administered on 10:18; Admin Dose 2 MG; Start 02/13/17 at 18:30 Sodium Chloride (NS) 1,000 ml @ 100 mls/hr Q10H IV ; Start 02/13/17 at 18:05 Kae CARRANZA Feb 15, 2017 12:25
[2017-02-20] MEDS ORDERED: LORA-186 PO (07:03)
== END 2017-02-15 13:10 | disposition home or self-care (01) | DRG 418 ==
LOC: E/R 23:09 → PP2 02-12 00:41
PROVIDERS: ADMIT Family Medicine; ATTEND Family Medicine
PROC: 0FT44ZZ Resection of Gallbladder, Percutaneous Endoscopic Approach (ICD-10-PCS; principal; 2017-02-13 17:00)
DX: K80.10 Calculus of gallbladder with chronic cholecystitis without obstruction (principal); E87.1 Hypo-osmolality and hyponatremia; K80.50 Calculus of bile duct without cholangitis or cholecystitis without obstruction; R94.31 Abnormal electrocardiogram [ECG] [EKG]; R00.1 Bradycardia, unspecified; E66.9 Obesity, unspecified; Z68.35 Body mass index [BMI] 35.0-35.9, adult; Z87.09 Personal history of other diseases of the respiratory system
CPT/HCPCS: 36415; 71010; 80053; 80061; 81003; 83036; 83690; 83735; 84100; 84439; 84443; 85025; 85610; 85730; 88304; 93005; 96365; 96366; 96375; C9113; J0690; J1170; J1885; J2175; J2250; J2270; J2405; J2543; J2710; J3010; J7030